=== PATIENT | female | born 2005 | race Caucasian/White ===

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

== ENCOUNTER → 2023-01-10 17:29 | Outpatient (BNVA) | payer BC, MEDICAID, SELFPAY | PROVIDERS: PCP Family Medicine; Visit Provider Nurse Practitioner Family | DX: N30.01 Acute cystitis with hematuria (principal) | CPT/HCPCS: 81000; 87077; 87086; 87184 ==

== ENCOUNTER → 2023-02-05 09:50 | Outpatient (BNVA) | payer BC, MEDICAID, SELFPAY | PROVIDERS: PCP Family Medicine; Visit Provider Nurse Practitioner Family | DX: M25.561 Pain in right knee (principal) | CPT/HCPCS: 73562 ==

== ENCOUNTER 2023-03-09 19:11 | Emergency (ER) | payer BC, MEDICAID, SELFPAY ==
[2023-03-09 19:29] VITALS: BMI 36.1
[2023-03-09 19:33] VITALS: BP 111/73; PULSE 91; RESP 16; TEMP 37; O2SAT 97
[2023-03-09 19:34] LABS: Basophils % 0.3 %; Eosinophils # 0.2 10^3/uL (0.0-0.8); Eosinophils % 2.8 %; Hematocrit 40.6 % (37.0-47.0); Hemoglobin 13.4 g/dL (11.5-15.3); Lymphocytes # 1.5 10^3/uL (1.5-6.5); Lymphocytes % 19.4 %; Mean Corpuscular Hemoglobin 26.3 pg (28.0-34.0); Mean Corpuscular Volume 79.6 fl (81-99); Mean Platelet Volume 10.8 fL (7.4-10.4); Monocytes # 0.4 10^3/uL (0.2-0.9); Monocytes % 4.7 %; Neutrophils # 5.78 10^3/uL (1.8-8.0); Neutrophils % 72.8 %; Nucleated Red Blood Cells % 0 %; Platelet Count 281 10^3/cmm (130-400); Red Cell Distribution Width 15.2 % (12.1-15.1); White Blood Count 7.9 10^3/uL (4.5-13.0)
[2023-03-09 19:53] LABS: HCG, Serum Qual Negative (Negative)
[2023-03-09 19:56] LABS: Alanine Aminotransferase 50 U/L (0-33); Albumin Level 4.7 g/dL (3.5-5.2); Alkaline Phosphatase 123 U/L (35-105); Anion Gap 16.6 (5-19); Aspartate Amino Transferase 22 U/L (0-32); Blood Urea Nitrogen 10 mg/dL (6-20); Calcium 9.5 mg/dL (8.5-10.5); Carbon Dioxide 21 mmol/L (22-29); Chloride 106 mmol/L (98-107); Glomerular Filtration Rate 127.5 mL/min (90-130); Glucose 95 mg/dL (65-115); Lipase 22 U/L (13-60); Osmolality Calculated 289 mOsm/kg (285-295); Potassium 3.6 mmol/L (3.5-5.1); Sodium 140 mmol/L (136-145); Total Bilirubin 0.4 mg/dL (0.15-1.2); Total Protein 7.7 g/dL (6.6-8.7)
--- NOTE | 2023-03-09 20:13 | CTR_ITS ---
PROCEDURE INFORMATION: Exam: CT Abdomen And Pelvis With Contrast Exam date and time: 03/09/2023 8:57 PM Age: 18 years old Clinical indication: Abdominal pain; Localized; Prior surgery; Surgery date: 6+ months; Surgery type: Csection; Patient HX: Upper abd pain radiating to mid back; Additional info: Epigastric pain radiating to back TECHNIQUE: Imaging protocol: Computed tomography of the abdomen and pelvis with contrast. Sagittal and coronal reformatted images were created and reviewed. Radiation optimization: All CT scans at this facility use at least one of these dose optimization techniques: automated exposure control; mA and/or kV adjustment per patient size (includes targeted exams where dose is matched to clinical indication); or iterative reconstruction. Contrast material: OMNI 350; Contrast volume: 100 ml; Contrast route: INTRAVENOUS (IV); REPORTING DATA: Count of CT and Cardiac NM exams in prior 12 months: This patient has received 0 known CTs and 0 known cardiac nuclear medicine studies in the 12 months prior to the current study. COMPARISON: CR XR lumbar spine 2-3V* [id number] 12/21/2022 1:23 PM RADIATION DOSE METRICS: Total DLP (mGy-cm): 752.33 FINDINGS: Lungs: Visualized lungs are clear. Pleural spaces: No pleural effusion. Heart: Visualized portions of the heart are unremarkable. Liver: The liver is unremarkable. Gallbladder and bile ducts: The gallbladder is unremarkable. No biliary ductal dilatation. Pancreas: The pancreas is unremarkable. No pancreatic ductal dilatation. Spleen: The spleen is unremarkable. Adrenal glands: The right and left adrenal glands are unremarkable. Kidneys and ureters: The right and left kidneys are unremarkable. The right and left ureters are unremarkable. Stomach and bowel: No obstruction. No mucosal thickening. Appendix: The appendix is visualized and is unremarkable. No findings to suggest acute appendicitis. Intraperitoneal space: No free intraperitoneal air. No ascites. No loculated fluid collections to suggest an abscess. Vasculature: No evidence for aortic aneurysm or aortic dissection. Hepatic veins, portal veins, splenic vein, and SMV are patent. Lymph nodes: No lymphadenopathy. Urinary bladder: The bladder is incompletely filled, which can limit evaluation. No focal abnormality in the bladder however. Reproductive: The uterus is unremarkable. The uterus is retroflexed. The right and left ovaries are unremarkable. Bones/joints: No acute fracture. Soft tissues: No acute abnormality in the extra-abdominal soft tissues. CT/CT abdomen pelvis w con* [id number] IMPRESSION: 1. No acute abnormality in the abdomen or pelvis. 2. Incidental/nonacute findings are listed in the report.
--- NOTE | 2023-03-09 20:15 | W.ED.ABDPA2 ---
HPI - Abdominal Pain General: Chief Complaint: Abdominal Pain Stated Complaint: ABD Pain Time Seen by Provider: 03/09/23 19:47 History of Present Illness: 18-year-old female comes in today for complaints of epigastric abdominal pain radiating to her back. Patient reports symptoms for the last week but worse today. Patient first related to the stress that she has been under. Patient does have a history of gastric reflux. Patient appears nontoxic. Patient appears in no pain at rest. Associated Symptoms: Reports nausea Related Data: Date of Last Menstrual Period: 02/18/23 Review of Systems General: Reports: 10 or more systems reviewed and unremarkable except in HPI and below GI: Reports: abdominal pain and nausea PFSH ED PFSH: Family History Father Diabetes Mother Diabetes Social History Smoking and tobacco status: current every day smoker (1/4 PPd Started smoking at age 15) Female Reproductive History: Date of last menstrual period: 02/18/23 Physical Exam Const: COMMON NORMALS: alert HENMT: COMMON NORMALS: normocephalic HEAD & SCALP: normocephalic THROAT: posterior oropharynx normal Neck/C-Spine: COMMON NORMALS: full ROM Resp: COMMON NORMALS: normal respiratory effort and clear to auscultation bilaterally AUSCULTATION: clear to auscultation bilaterally Cardio: COMMON NORMALS: regular rate and regular rhythm RATE: regular rate RHYTHM: regular rhythm GI: COMMON NORMALS: Soft to palpation PALPATION: Yes Soft to palpation, Yes Tenderness to palpation present (GI) (Epigastric) and No Guarding due to palpation present (GI) Back/Pelvis: COMMON NORMALS: thoracic and lumbar spine normal to inspection Extremity: COMMON NORMALS: normal to inspection Neuro: SENSORIUM/ORIENTATION: Yes alert Skin: COMMON NORMALS: turgor normal GENERAL SKIN EXAM: turgor normal Course Vital Signs: Vital signs: Vital Signs Temperature 98.6 F 03/09/23 19:33 Pulse Rate 91 03/09/23 19:33 Respiratory Rate 16 03/09/23 19:33 Blood Pressure 111/73 03/09/23 19:33 Pulse Oximetry 97 03/09/23 19:33 Oxygen Delivery Me thod Room Air 03/09/23 19:33 MDM - Abdominal Pain Medical Decision Making 18-year-old female comes in with epigastric pain and nausea. Patient appears nontoxic. Patient's abdomen soft with some epigastric tenderness. Bowel sounds are active. Vital signs are normal. Differential diagnosis includes but not limited to urinary tract infection, gastritis, cholecystitis, pancreatitis, malingering. Laboratory values were unremarkable except for some mild elevation in ALT's and alkaline phosphatase. Laboratory values were unremarkable except for some elevation in ALT, and alkaline phosphatase. Urinalysis was a dirty catch. CT of the abdomen pelvis showed no specific findings. I believe patient probably has a superficial gastritis we will treat her for 2 weeks with a PPI and recommend follow-up with primary care. Patient was stable and released to home. Lab Data 03/09/23 19:03/09/23: Labs/Radiology: Radiology Impressions Abdomen/Pelvis CT 03/09/23 20:13 IMPRESSION: 1. No acute abnormality in the abdomen or pelvis. 2. Incidental/nonacute findings are listed in the report. Laboratory Results WBC 7.9 10^3/uL (4.5-13.0) 03/09/23: RBC 5.10 10^6/uL (4.1-5.3) 03/09/23: Hgb 13.4 g/dL (11.5-15.3) 03/09/23: Hct 40.6 % (37.0-47.0) 03/09/23: MCV 79.6 fl (81-99) L 03/09/23: MCH 26.3 pg (28.0-34.0) L 03/09/23: MCHC 33.0 g/dL (30.0-36.0) 03/09/23: RDW 15.2 % (12.1-15.1) H 03/09/23: Plt Count 281 10^3/cmm (130-400) 03/09/23: MPV 10.8 fL (7.4-10.4) H 03/09/23: Neut % (Auto) 72.8 % 03/09/23: Lymph % (Auto) 19.4 % 03/09/23: [place] % (Auto) 4.7 % 08/11/23 19:28 Eos % (Auto) 2.8 % 03/09/23 19:28 Baso % (Auto) 0.3 % 03/09/23 19: Neut # (Auto) 5.78 10^3/uL (1.8-8.0) 03/09/23 19: Lymph # (Auto) 1.5 10^3/uL (1.5-6.5) 03/09/23 19: [place] # (Auto) 0.4 10^3/uL (0.2-0.9) 03/09/23 19: Eos # (Auto) 0.2 10^3/uL (0.0-0.8) 03/09/23 19: Baso # (Auto) 0.0 10^3/uL (0.0-0.1) 03/09/23 19: Nucleated RBC % (auto) 0 % 03/09/23 19: Nucleated RBCs # 0.0 /100WBC 03/09/23 19: Sodium 140 mmol/L (136-145) 03/09/23 19: Potassium 3.6 mmol/L (3.5-5.1) 03/09/23 19: Chloride 106 mmol/L (98-107) 03/09/23 19: Carbon Dioxide 21 mmol/L (22-29) L 03/09/23 19: Anion Gap 16.6 (5-19) 03/09/23 19: BUN 10 mg/dL (6-20) 03/09/23 19: Creatinine 0.6 mg/dL (0.5-0.9) 03/09/23 19: GFR Calculation 127.5 mL/min (90-130) 03/09/23 19: Glucose 95 mg/dL (65-115) 03/09/23 19: Calculated Osmolality 289 mOsm/kg (285-295) 03/09/23 19: Calcium 9.5 mg/dL (8.5-10.5) 03/09/23 19: Total Bilirubin 0.4 mg/dL (0.15-1.2) 03/09/23 19: AST 22 U/L (0-32) 03/09/23 19: ALT 50 U/L (0-33) H 08/11/23 19:28 Alkaline Phosphatase 123 U/L (35-105) H 03/09/23 19:28 Total Protein 7.7 g/dL (6.6-8.7) 03/09/23 19:28 Albumin 4.7 g/dL (3.5-5.2) 03/09/23 19:28 Globulin 3.0 g/dL (1.3-4.6) 03/09/23 19:28 Lipase 22 U/L (13-60) 03/09/23 19:28 HCG, Qual Negative (Negative) 03/09/23 19:28 Urine Color Yellow (Yellow) 03/09/23 20:34 Urine Appearance Hazy (CLEAR) A 03/09/23 20:34 Urine pH 6 (5-7) 03/09/23 20:34 Ur Specific [place] 1.020 (1.005-1.030) 03/09/23 20:34 Urine Protein Trace (Negative) 03/09/23 20:34 Urine Glucose (UA) Norm (Normal) 03/09/23 20:34 Urine Ketones 1+ (Negative) H 03/09/23 20:34 Urine Blood Neg (Negative) 03/09/23 20:34 Urine Nitrate Negative (Negative) 03/09/23 20:34 Urine Bilirubin 1+ (Negative) H 03/09/23 20:34 Urine Urobilinogen 8 mg/dL (Negative) H 03/09/23 20:34 Ur Leukocyte Esterase 1+ (Negative) H 03/09/23 20:34 Urine RBC 0-4 /hpf (0-2) H 03/09/23 20:34 Urine WBC 0-4 /hpf (0-5) H 03/09/23 20:34 Ur Squamous Epith Cells 15-25 /hpf (0-5) H 03/09/23 20:34 Amorphous Sediment Not Reportable 03/09/23 20:34 Urine Bacteria 1+ /hpf (NONE) H 03/09/23 20:34 Urine Mucus 1+ /hpf 03/09/23 20:34 Discharge Plan Discharge Patient Disposition: Home Clinical Impression: Gastritis Qualifiers: Gastritis type: unspecified gastritis Chronicity: acute Gastritis bleeding: without bleeding Qualified Code(s): K29.00 - Acute gastritis without bleeding Condition: Stable Prescriptions: New pantoprazole 40 mg tablet,delayed release (DR/EC) 40 mg PO DAILY Qty: 14 0RF No Action loratadine 10 mg tablet 10 mg PO DAILY 90 Days Qty: 90 1RF nystatin 100,000 unit/gram ointment 1 applic topical BID Qty: 30 2RF nystatin 100,000 unit/gram powder 1 applic topical DAILY Qty: 60 0RF ondansetron 4 mg tablet,disintegrating 4 mg PO DAILY PRN (Reason: nausea and vomiting) Qty: 30 0RF norgestimate-ethinyl estradiol [Sprintec (28)] 0.25-35 mg-mcg tablet 1 tab PO DAILY Qty: 84 3RF bupropion HCl [Wellbutrin XL] 150 mg tablet extended release 24 hr 150 mg PO QAM 30 Days Qty: 30 2RF fluticasone propionate [Flonase Allergy Relief] 50 mcg/actuation spray,suspension 1 spray intranasal BID 30 Days Qty: 16 11RF Rx Instructions: administer into each nostril fexofenadine [Yolanda Allergy] 180 mg tablet 180 mg PO Q24H 90 Days Qty: 90 1RF ibuprofen 600 mg tablet 600 mg PO Q8H PRN (Reason: pain) Qty: 30 0RF cyclobenzaprine 5 mg tablet 10 mg PO TID MDD 6 tabs PRN (Reason: muscle spasm) Qty: 30 1RF Rx Instructions: 1 or 2 tabs as needed Discharge Orders: Discharge ED (Routine); Ordered 03/09/23 Ordered By: Justino Chin Referrals: Freda Huerta MD [Primary Care Provider] - Discharge Diet: Usual diet Discharge Activity: Increase activity as tolerated Patient Instructions: Gastritis (ED), Diet for Stomach Ulcers and Gastritis (ED) Activity Restrictions/Additional Instructions: Take pantoprazole 1 capsule 30 minutes before the first meal of your day. Drink plenty of water. Healthy diet and activity. Follow-up with primary care in 3 to 5 days for recheck. Return to ED for new concerns. Coding Level of Care Code ED Emergency Room Physician Assistant for Malorie Loredo
[2023-03-09] MEDS: iohexol 350 mg/mL 500 mL Btl (per mL) IV (20:58)
[2023-03-09 21:11] LABS: Protein Urine Trace (Negative); Urine Appearance Hazy (CLEAR); Urine Color Yellow (Yellow); pH Urine 6 (5-7)
[2023-03-09 21:12] LABS: Add Urine Microscopic? YES; Bilirubin Urine 1+ (Negative); Blood Urine Neg (Negative); Glucose Urine UA Norm (Normal); Ketones Urine 1+ (Negative); Leukocyte Esterase Urine 1+ (Negative); Nitrate Urine Negative (Negative); RBC Urine 0-4 /hpf (0-2); Urobilinogen Urine 8 mg/dL (Negative); WBC Urine 0-4 /hpf (0-5)
[2023-03-09 21:13] LABS: Add Urine Culture? No; Bacteria Urine 1+ /hpf; Mucus Urine 1+ /hpf; Squamous Epithelial Cell Urine 15-25 /hpf (0-5)
[2023-03-09] MEDS: pantoprazole DR 40 mg Tablet PO (22:02)
[2023-03-09 23:20] VITALS: BP 119/84; PULSE 75; RESP 16; O2SAT 97
== END 2023-03-09 22:05 | disposition home or self-care (01) ==
PROVIDERS: Emergency Medicine; Emergency Provider Nurse Practitioner Family; PCP Family Medicine
DX: K29.00 Acute gastritis without bleeding (principal); F17.210 Nicotine dependence, cigarettes, uncomplicated
CPT/HCPCS: 36415; 74177; 80053; 81001; 83690; 84703; 85025; 99285; Q9967

== ENCOUNTER → 2023-04-03 10:51 | Outpatient (BNVA) | payer BC, MEDICAID, SELFPAY | PROVIDERS: PCP Family Medicine; Referring Provider Nurse Practitioner Family; Visit Provider Nurse Practitioner Family | DX: M25.561 Pain in right knee (principal) | CPT/HCPCS: 73562 ==

== ENCOUNTER 2023-04-09 06:00 | Outpatient (RCR) | payer BC, MEDICAID, SELFPAY | END 2023-04-28 23:59 | disposition home or self-care (01) | LOC: MPT 06:00 | PROVIDERS: Visit Provider Nurse Practitioner Family | DX: M25.561 Pain in right knee (principal) | CPT/HCPCS: 97110; 97161 ==

== ENCOUNTER 2023-04-29 06:00 | Outpatient (RCR) | payer BC, MEDICAID, SELFPAY | END 2023-05-29 23:59 | disposition home or self-care (01) | LOC: MPT 06:00 | PROVIDERS: PCP Family Medicine; Visit Provider Nurse Practitioner Family | DX: M25.561 Pain in right knee (principal) | CPT/HCPCS: 97110 ==

== ENCOUNTER → 2023-05-08 11:53 | Outpatient (BNVA) | payer BC, MEDICAID, SELFPAY | PROVIDERS: PCP Family Medicine; Visit Provider Nurse Practitioner Family | DX: R31.9 Hematuria, unspecified (principal); R81 Glycosuria; Z32.00 Encounter for pregnancy test, result unknown; N39.0 Urinary tract infection, site not specified | CPT/HCPCS: 80053; 81000; 81025; 83036; 84702; 85025; 87077; 87086; 87184 ==

== ENCOUNTER 2023-05-30 06:00 | Outpatient (RCR) | payer BC, MEDICAID, SELFPAY | END 2023-06-28 23:59 | disposition home or self-care (01) | LOC: MPT 06:00 | PROVIDERS: PCP Family Medicine; Visit Provider Nurse Practitioner Family | DX: M25.561 Pain in right knee (principal) | CPT/HCPCS: 97110 ==

== ENCOUNTER → 2023-07-02 15:27 | Outpatient (BNVA) | payer BC, MEDICAID, SELFPAY | PROVIDERS: PCP Family Medicine; Visit Provider Family Medicine | DX: J30.2 Other seasonal allergic rhinitis (principal); J32.9 Chronic sinusitis, unspecified; F98.8 Other specified behavioral and emotional disorders with onset usually occurring in childhood and adolescence; Z30.9 Encounter for contraceptive management, unspecified; J32.0 Chronic maxillary sinusitis; Z30.42 Encounter for surveillance of injectable contraceptive | CPT/HCPCS: 81025 ==

== ENCOUNTER → 2023-08-14 15:48 | Outpatient (BNVA) | payer MEDICAID, SELFPAY | PROVIDERS: PCP Family Medicine; Visit Provider Nurse Practitioner Family | DX: R39.9 Unspecified symptoms and signs involving the genitourinary system (principal); R31.9 Hematuria, unspecified; N39.0 Urinary tract infection, site not specified; N30.01 Acute cystitis with hematuria | CPT/HCPCS: 81000; 87086 ==

== ENCOUNTER → 2023-10-02 10:20 | Outpatient (BNVA) | payer BC, MEDICAID, SELFPAY | PROVIDERS: PCP Family Medicine; Visit Provider Emergency Medicine | DX: Z30.42 Encounter for surveillance of injectable contraceptive | CPT/HCPCS: 81025 ==

== ENCOUNTER → 2024-01-01 16:00 | Outpatient (BNVA) | payer MEDICAID, SELFPAY | PROVIDERS: PCP Family Medicine; Visit Provider Nurse Practitioner Family | DX: J02.9 Acute pharyngitis, unspecified (principal); J06.9 Acute upper respiratory infection, unspecified | CPT/HCPCS: 87071; 87880 ==

== ENCOUNTER → 2024-03-19 14:19 | Outpatient (BNVA) | payer BC, MEDICAID, SELFPAY | PROVIDERS: PCP Family Medicine; Visit Provider Family Medicine | DX: Z30.42 Encounter for surveillance of injectable contraceptive (principal) | CPT/HCPCS: 81025 ==

== ENCOUNTER → 2024-04-09 09:52 | Outpatient (BNVA) | payer BC, MEDICAID, SELFPAY | PROVIDERS: PCP Family Medicine; Visit Provider Nurse Practitioner | DX: M25.531 Pain in right wrist (principal); W01.198A Fall on same level from slipping, tripping and stumbling with subsequent striking against other object, initial encounter | CPT/HCPCS: 73110 ==

== ENCOUNTER → 2024-05-08 09:27 | Outpatient (BNVA) | payer BC, MEDICAID, SELFPAY | PROVIDERS: PCP Family Medicine; Visit Provider Nurse Practitioner | DX: N91.2 Amenorrhea, unspecified (principal); R30.0 Dysuria | CPT/HCPCS: 81000; 81025 ==

== ENCOUNTER 2024-05-24 21:17 | Emergency (ER) | payer BC, MEDICAID, SELFPAY ==
[2024-05-24 21:27] VITALS: BP 117/79; PULSE 78; RESP 16; TEMP 36.8; O2SAT 100; BMI 32.5
[2024-05-24 23:17] LABS: Bilirubin Urine Negative (Negative); Blood Urine Negative (Negative); Glucose Urine UA Negative (Normal); Ketones Urine Negative (Negative); Leukocyte Esterase Urine Negative (Negative); Nitrate Urine Negative (Negative); Protein Urine Negative (Negative); Specific Gravity, Urine 1.028 (1.005-1.030); Urine Appearance Clear (CLEAR); Urine Color Yellow (Yellow); pH Urine 6.5 (5-7)
--- NOTE | 2024-05-24 23:19 | CTR_ITS ---
PROCEDURE INFORMATION: Exam: CT Abdomen And Pelvis With Contrast Exam date and time: 05/24/2024 11:32 PM Age: 19 years old Clinical indication: Abdominal pain; Localized; Right lower quadrant (rlq); Prior surgery; Surgery date: 6+ months; Surgery type: Csection; Patient HX: Rlq pain TECHNIQUE: Imaging protocol: Computed tomography of the abdomen and pelvis with contrast. Radiation optimization: All CT scans at this facility use at least one of these dose optimization techniques: automated exposure control; mA and/or kV adjustment per patient size (includes targeted exams where dose is matched to clinical indication); or iterative reconstruction. Contrast material: OMNI; Contrast volume: 100 ml; Contrast route: INTRAVENOUS (IV); COMPARISON: CT abdomen pelvis w con* [id number] 06/06/2023 20:57 RADIATION DOSE METRICS: Total DLP (mGy-cm): 620.63 FINDINGS: Lungs: No consolidation in the visualized lung bases. Liver: No hepatomegaly. There are no enhancing liver masses. Gallbladder and biliary ducts: No calcified stones. No ductal dilation. Pancreas: Normal in size and homogeneous enhancement. No ductal dilation. Spleen: Normal. No splenomegaly. Adrenal glands: Normal. No mass. Kidneys and ureters: There is no hydronephrosis. No renal or obstructing ureteral calculi. Stomach and bowel: Wall thickening of multiple bowel loops consistent with infectious, inflammatory or ischemic enteritis (axial series 3, image 37; coronal series 5, images 30-40). The terminal ileum is thickened (coronal series 5, image 31; axial series 3, image 50). Appendix: A normal appendix is identified. Intraperitoneal space: No free air. No significant fluid collection. Vasculature: There is no abdominal aortic aneurysm or dissection. The celiac trunk, SMA and JOHN are widely patent. Lymph nodes: There are borderline prominent mesenteric lymph nodes, likely reactive. Urinary bladder: The bladder shows a normal contour and is free of calcific opacities. Reproductive: Unremarkable as visualized. Bones/joints: No acute fracture. Soft tissues: Normal. CT/CT abdomen pelvis w con* [id number] IMPRESSION: 1. A normal appendix is identified. 2. Wall thickening of multiple bowel loops consistent with infectious, inflammatory or ischemic enteritis. The terminal ileum is thickened.
[2024-05-24 23:28] LABS: Add Urine Microscopic? YES; Bacteria Urine TRACE /hpf; Mucus Urine 2+ /hpf; RBC Urine 0-4 /hpf (0-2); WBC Urine 0-4 /hpf (0-5)
[2024-05-24 23:29] LABS: Add Urine Culture? No
[2024-05-24 23:29] LABS: HCG, Serum Qual Negative (Negative)
[2024-05-24 23:32] LABS: Basophils % 0.4 %; Eosinophils # 0.2 10^3/uL (0.0-0.8); Hematocrit 40.2 % (36-47); Lymphocytes # 1.9 10^3/uL (0.8-4.8); Lymphocytes % 26.6 %; Mean Corpuscular HGB Conc 32.6 g/dL (30-55); Mean Corpuscular Volume 82.7 fl (85-98); Mean Platelet Volume 10.8 fL (7.4-10.4); Monocytes # 0.5 10^3/uL (0.2-0.9); Monocytes % 6.9 %; Neutrophils # 4.57 10^3/uL (1.8-7.7); Neutrophils % 62.8 %; Nucleated Red Blood Cells % 0 %; Platelet Count 263 10^3/cmm (157-399); Red Blood Count 4.86 10^6/uL (3.85-5.65); Red Cell Distribution Width 13.1 % (12.1-15.1); White Blood Count 7.28 10^3/uL (3.29-11.43)
[2024-05-24] MEDS: ondansetron 2 mg/ML SDV 2 mL 4 MG IVP (23:33)
[2024-05-24] MEDS: morphine 4 mg/mL SDV 1 mL IVP (23:33)
[2024-05-24 23:35] LABS: Alanine Aminotransferase 14 U/L (0-33); Albumin Level 4.5 g/dL (3.5-5.2); Alkaline Phosphatase 80 U/L (35-105); Anion Gap 12.9 (5-19); Aspartate Amino Transferase 14 U/L (0-32); Blood Urea Nitrogen 10 mg/dL (6-20); Calcium 8.8 mg/dL (8.5-10.5); Carbon Dioxide 23 mmol/L (22-29); Chloride 106 mmol/L (98-107); Creatinine Clr Calc Pharmacy 168.2664; Globulin 2.7 g/dL (1.3-4.6); Glomerular Filtration Rate 155.7 mL/min (90-130); Glucose 100 mg/dL (65-115); Lipase 34 U/L (13-60); Osmolality Calculated 285 mOsm/kg (285-295); Potassium 3.9 mmol/L (3.5-5.1); Sodium 138 mmol/L (136-145); Total Bilirubin 0.2 mg/dL (0.15-1.2); Total Protein 7.2 g/dL (6.6-8.7)
[2024-05-24] MEDS: iohexol 350 mg/mL 500 mL Btl (per mL) IV (23:36)
[2024-05-25] MEDS: metroNIDAZOLE 500 MG Tablet PO (01:37)
[2024-05-25] MEDS: ketorolac 30 mg/mL INJ IVP (01:37)
[2024-05-25] MEDS: ciprofloxacin 500 mg Tablet PO (01:40)
[2024-05-25 01:43] VITALS: BP 137/64; PULSE 67; O2SAT 97
--- NOTE | 2024-05-25 03:40 | ED_ITS ---
HPI - Abdominal Pain 2 General: Chief Complaint: Abdominal Pain Stated Complaint: abd pain Time Seen by Provider: 05/24/24 22:56 History of Present Illness: 19-year-old female with right lower quad rant pain, seeming to radiate into her left upper quadrant. She has had 1 in the past. She does not believe she is today. No fever. She is nauseated but has not vomited. She noticed some bright red blood in the stool, small amount earlier in the evening. Related Data Previous Rx's Medication Instructions Recorded nystatin 100,000 unit/gram topical 1 applic topical BID #30 grams 08/30/22 ointment albuterol sulfate 90 mcg/actuation 2 puff inhalation Q6H #8.5 grams 06/04/23 aerosol inhaler fluticasone propionate 50 1 spray intranasal BID 30 days #16 07/02/23 mcg/actuation nasal grams spray,suspension (Flonase Allergy Relief) cyclobenzaprine 5 mg tablet 10 mg (2 x 5 mg) PO TID PRN muscle 12/18/23 spasm #90 tabs nystatin 100,000 unit/gram topical 1 applic topical DAILY #60 grams 03/08/24 powder medroxyprogesterone 150 mg/mL 150 mg IM ONCE 90 days #1 mL 03/18/24 intramuscular suspension (Depo-Provera) atomoxetine 40 mg capsule 40 mg PO QAM 30 days #30 caps 03/19/24 (Strattera) fluoxetine 10 mg capsule 10 mg PO DAILY 30 days #30 caps 03/19/24 hydroxyzine HCl 10 mg tablet 10 mg PO .at bedtime PRN insomnia 03/19/24 30 days #30 tabs azelastine 205.5 mcg (0.15 %) 1 spray intranasal BID #30 mL 04/17/24 nasal spray (Astepro Allergy) nitrofurantoin 100 mg PO Q12H 7 days #14 caps 05/08/24 monohydrate/macrocrystals 100 mg capsule (Macrobid) ciprofloxacin HCl 500 mg tablet 500 mg PO BID #14 tabs 05/25/24 ketorolac 10 mg tablet 10 mg PO TID PRN pain #10 tabs 05/25/24 metronidazole 500 mg tablet 500 mg PO Q8H 7 days #21 tabs 05/25/24 Allergies Allergy/AdvReac Type Severity Reaction Status Date / Time misha Allergy SNEEZE Verified 05/24/24 21:27 Milk Containing Products Allergy Intermediate ADR-Nausea Uncoded 05/24/24 21:27 (Dairy) PFSH ED 2 PFSH: Family History Father Diabetes Mother Diabetes Social History Smoking and tobacco/nicotine status: current every day tobacco/nicotine user Female Reproductive History: Spontaneous abortions: No Physical Exam 2 Const: COMMON NORMALS: no acute distress GENERAL APPEARANCE: cooperative; not ill appearing and not frail appearing HENMT: COMMON NORMALS: normocephalic, atraumatic and Normal external nose present HEAD & SCALP: normocephalic and atraumatic FACE & SINUS: normal facial exam and face symmetric NOSE: Normal external nose present Eye: COMMON NORMALS: Equal, round and reactive pupils present and EOMs intact bilaterally PUPIL: Yes Equal, round and reactive pupils present Neck/C-Spine: GENERAL: Yes trachea midline Chest: CHEST: Yes Symmetrical chest wall rise Resp: COMMON NORMALS: normal respiratory effort, No retractions, No use of accessory muscles and clear to auscultation bilaterally AUSCULTATION: clear to auscultation bilaterally Cardio: COMMON NORMALS: regular rate and regular rhythm RATE: regular rate RHYTHM: regular rhythm GI: COMMON NORMALS: Normal to inspection, nondistended, normoactive bowel sounds present and Soft to palpation PALPATION: Yes Soft to palpation and Yes Tenderness to palpation present (GI) Details: RLQ Extremity: COMMON NORMALS: no pedal edema Neuro: HERNANDEZ COMA SCALE: document GCS findings Hernandez coma scale eye opening: Spontaneous [place] coma scale verbal response: Orientated Hernandez coma scale motor response: Obey commands [place] coma scale total score: 15 S ENSORY EXAM: Yes extremities (intact) Psych: COMMON NORMALS: speech normal SPEECH: Yes normal speech Skin: COMMON NORMALS: no rashes or lesions noted GENERAL SKIN EXAM: no rashes or lesions noted Course 2 Vital Signs: Vital signs: Vital Signs Temperature 98.2 F 05/24/24 21:27 Pulse Rate 67 05/25/24 01:43 Respiratory Rate 16 05/24/24 21:27 Blood Pressure 137/64 05/25/24 01:43 Pulse Oximetry 97 05/25/24 01:43 Oxygen Delivery Me thod Room Air 05/24/24 21:27 MDM - Abdominal Pain Medical Decision Making Tenderness in the right lower quadrant. No fever. White blood cell count is normal. CRP is 3. CT shows wall thickening of multiple bowel loops consistent with infectious inflammatory enteritis. She was placed on antibiotics. She will be allowed discharge. Lab Data 05/24/24 23:10 05/24/24 23:10 Labs/Radiology: Radiology Impressions Abdomen/Pelvis CT 05/24/24 23:19 IMPRESSION: 1. A normal appendix is identified. 2. Wall thickening of multiple bowel loops consistent with infectious, inflammatory or ischemic enteritis. The terminal ileum is thickened. Laboratory Results WBC 7.28 10^3/uL (3.29-11.43) 05/24/24 23:10 RBC 4.86 10^6/uL (3.85-5.65) 05/24/24 23:10 Hgb 13.10 g/dL (11.27-16.99) 05/24/24 23:10 Hct 40.2 % (36-47) 05/24/24 23:10 MCV 82.7 fl (85-98) L 05/24/24 23:10 MCH 27.0 pg (27-33) 05/24/24 23:10 MCHC 32.6 g/dL (30-55) 05/24/24 23:10 RDW 13.1 % (12.1-15.1) 05/24/24 23:10 Plt Count 263 10^3/cmm (157-399) 05/24/24 23:10 MPV 10.8 fL (7.4-10.4) H 05/24/24 23:10 Neut % (Auto) 62.8 % 05/24/24 23:10 Lymph % (Auto) 26.6 % 05/24/24 23:10 [place] % (Auto) 6.9 % 05/24/24 23:10 Eos % (Auto) 3.0 % 05/24/24 23:10 Baso % (Auto) 0.4 % 05/24/24 23:10 Neut # (Auto) 4.57 10^3/uL (1.8-7.7) 05/24/24 23:10 Lymph # (Auto) 1.9 10^3/uL (0.8-4.8) 05/24/24 23:10 [place] # (Auto) 0.5 10^3/uL (0.2-0.9) 05/24/24 23:10 Eos # (Auto) 0.2 10^3/uL (0.0-0.8) 05/24/24 23:10 Baso # (Auto) 0.0 10^3/uL (0.0-0.1) 05/24/24 23:10 Nucleated RBC % (auto) 0 % 05/24/24 23:10 Nucleated RBCs # 0.0 /100WBC 05/24/24 23:10 Sodium 138 mmol/L (136-145) 05/24/24 23:10 Potassium 3.9 mmol/L (3.5-5.1) 05/24/24 23:10 Chloride 106 mmol/L (98-107) 05/24/24 23:10 Carbon Dioxide 23 mmol/L (22-29) 05/24/24 23:10 Anion Gap 12.9 (5-19) 05/24/24 23:10 BUN 10 mg/dL (6-20) 05/24/24 23:10 Creatinine 0.5 mg/dL (0.5-0.9) 05/24/24 23:10 GFR Calculation 155.7 mL/min (90-130) H 05/24/24 23:10 Glucose 100 mg/dL (65-115) 05/24/24 23:10 Calculated Osmolality 285 mOsm/kg (285-295) 05/24/24 23:10 Calcium 8.8 mg/dL (8.5-10.5) 05/24/24 23:10 Total Bilirubin 0.2 mg/dL (0.15-1.2) 05/24/24 23:10 AST 14 U/L (0-32) 05/24/24 23:10 ALT 14 U/L (0-33) 05/24/24 23:10 Alkaline Phosphatase 80 U/L (35-105) 05/24/24 23:10 C-Reactive Protein 3.0 mg/L (0.0-4.9) 05/24/24 23:10 Total Protein 7.2 g/dL (6.6-8.7) 05/24/24 23:10 Albumin 4.5 g/dL (3.5-5.2) 05/24/24 23:10 Globulin 2.7 g/dL (1.3-4.6) 05/24/24 23:10 Lipase 34 U/L (13-60) 05/24/24 23:10 HCG, Qual Negative (Negative) 05/24/24 23:10 Urine Color Yellow (Yellow) 05/24/24 23:05 Urine Appearance Clear (CLEAR) 05/24/24 23:05 Urine pH 6.5 (5-7) 05/24/24 23:05 Ur Specific [place] 1.028 (1.005-1.030) 05/24/24 23:05 Urine Protein Negative (Negative) 05/24/24 23:05 Urine Glucose (UA) Negative (Normal) 05/24/24 23:05 Urine Ketones Negative (Negative) 05/24/24 23:05 Urine Blood Negative (Negative) 05/24/24 23:05 Urine Nitrate Negative (Negative) 05/24/24 23:05 Urine Bilirubin Negative (Negative) 05/24/24 23:05 Urine Urobilinogen 1.0 mg/dL (Negative) 05/24/24 23:05 Ur Leukocyte Esterase Negative (Negative) 05/24/24 23:05 Urine RBC 0-4 /hpf (0-2) H 05/24/24 23:05 Urine WBC 0-4 /hpf (0-5) H 05/24/24 23:05 Ur Squamous Epith Cells 10-15 /hpf (0-5) H 05/24/24 23:05 Amorphous Sediment Not Reportable 05/24/24 23:05 Urine Bacteria Trace /hpf (NONE) 05/24/24 23:05 Urine Mucus 2+ /hpf 05/24/24 23:05 All radiology interpretation(s) finalized by discharge Discharge Plan Discharge Patient Disposition: Home Clinical Impression: Enteritis Condition: Stable Prescriptions: New ketorolac 10 mg tablet 10 mg PO TID PRN (Reason: pain) Qty: 10 0RF ciprofloxacin HCl 500 mg tablet 500 mg PO BID Qty: 14 0RF metronidazole 500 mg tablet 500 mg PO Q8H 7 Days Qty: 21 0RF No Action nystatin 100,000 unit/gram ointment 1 applic topical BID Qty: 30 2RF fluticasone propionate [Flonase Allergy Relief] 50 mcg/actuation spray,suspension 1 spray intranasal BID 30 Days Qty: 16 11RF Rx Instructions: administer into each nostril albuterol sulfate 90 mcg/actuation HFA aerosol inhaler 2 puff inhalation Q6H Qty: 8.5 0RF Rx Instructions: 2 puffs inhaled every 6 hours as needed cyclobenzaprine 5 mg tablet 10 mg PO TID MDD 6 tabs PRN (Reason: muscle spasm) Qty: 90 2RF Rx Instructions: 1 or 2 tabs as needed hydroxyzine HCl 10 mg tablet 10 mg PO .at bedtime PRN (Reason: insomnia) 30 Days Qty: 30 3RF fluoxetine 10 mg capsule 10 mg PO DAILY 30 Days Qty: 30 3RF atomoxetine [Strattera] 40 mg capsule 40 mg PO QAM 30 Days Qty: 30 2RF azelastine [Astepro Allergy] 205.5 mcg (0.15 %) spray,non-aerosol 1 spray intranasal BID Qty: 30 0RF Rx Instructions: administer into each nostril nitrofurantoin monohyd/m-cryst [Macrobid] 100 mg capsule 100 mg PO Q12H 7 Days Qty: 14 0RF Rx Instructions: must administer with a meal/food nystatin 100,000 unit/gram powder 1 applic topical DAILY Qty: 60 0RF medroxyprogesterone [Depo-Provera] 150 mg/mL suspension 150 mg IM ONCE 90 Days Qty: 1 1RF Discharge Orders: Discharge ED (Routine); Ordered 05/25/24 Ordered By: Manuel Cardenas Referrals: Freda Huerta MD [Primary Care Provider] - 1-3 days Patient Instructions: Enteritis (ED), Opioid Safety, Pain Management Activity Restrictions/Additional Instructions: Antibiotics as directed. Drink plenty of clear fluids. Return for vomiting liquids or medications, worsening pain despite treatment, worsening blood in the stool, fever despite 2-3 doses of antibiotics, other concerning symptoms. Call your doctor on Sunday to be seen this week. Coding Level of Care Code ED Consolidator for Malorie Loredo
== END 2024-05-25 01:44 | disposition home or self-care (01) ==
PROVIDERS: Emergency Provider Emergency Medicine; PCP Family Medicine
DX: K52.9 Noninfective gastroenteritis and colitis, unspecified (principal)
CPT/HCPCS: 74177; 80053; 81001; 83690; 84703; 85025; 86140; 96374; 96375; 99285; J1885; J2270; J2405

== ENCOUNTER → 2024-06-13 12:18 | Outpatient (BNVA) | payer BC, MEDICAID, SELFPAY | PROVIDERS: PCP Family Medicine; Visit Provider Nurse Practitioner Family | DX: Z30.42 Encounter for surveillance of injectable contraceptive (principal) | CPT/HCPCS: 81025 ==

== ENCOUNTER → 2024-06-19 17:16 | Outpatient (BNVA) | payer BC, MEDICAID, SELFPAY | PROVIDERS: PCP Family Medicine; Visit Provider Nurse Practitioner Family | DX: O21.0 Mild hyperemesis gravidarum (principal) | CPT/HCPCS: 81025 ==

== ENCOUNTER → 2024-09-01 11:00 | Outpatient (BNVA) | payer BC, MEDICAID, SELFPAY | PROVIDERS: PCP Family Medicine; Visit Provider Family Medicine | DX: Z30.42 Encounter for surveillance of injectable contraceptive (principal) | CPT/HCPCS: 81025 ==

== ENCOUNTER 2024-10-14 07:18 | Day surgery (SDC) | payer BC, MEDICAID, SELFPAY ==
[2024-10-14] VITALS (7 sets, daily range): BP systolic 75–132; BP diastolic 48–79; PULSE 48–95; RESP 16–18; TEMP 36.2–36.6; O2SAT 94–100; BMI 31.4
[2024-10-14] MEDS: sodium chloride 0.9% 500 ML 15 ML IV (07:51)
[2024-10-14 07:59] LABS: OR HCG Qualitative Urine Negative (Negative)
--- NOTE | 2024-10-14 08:12 | P.ANESASSM_ITS ---
Pre-Anesthetic Assessment Height/Weight: Height 1.55 m Weight 75.296 kg Temp Pulse Resp BP Pulse Ox O2 Del Method 97.9 F 72 16 132/79 99 Room Air 10/14/24 07:42 10/14/24 07:42 10/14/24 07:42 10/14/24 07:42 10/14/24 07:42 10/14/24 07:42 Preop Diagnosis: GI issues Operation Date: 10/14/24 08:30 Proposed Procedures p EGD [id number] G0105 K52.9 K21.9(Not Applicable) - Raheem Caldwell MD s Colonoscopy(Not Applicable) - Raheem Caldwell MD Familial anesthetic complications: none Was Beta Sherman taken within 24 hours: N/A Was Clonidine taken within 24 hours: N/A Last intake: Intake Last Liquid Date 10/13/24 Last Liquid Time 22:00 Last Solid Date 10/12/24 Last Solid Time 18:00 Social Tobacco and No alcohol Vapes Exam alert, oriented x 3, clear to auscultation bilaterally and regular rate & rhythm Airway Submandibular: within normal limits Cervical ROM: within normal limits Mallampati: Class II Dentition: full History/ROS No significant history except as noted and No significant complaints Pulmonary Asthma seasonal CV/HEM None reported None reported Hepatic None reported GI None reported Metabolic None reported Musc/skel None reported Neuropsych None reported Anesthetic Plan ASA status: 2 Anesthesia: MAC Risk of > 500 ml blood loss (7ml/kg in children): No Medications/Allergies Home Medications ?Medication ?Instructions ?Recorded ?Confirmed ?Last Taken ?Type albuterol sulfate 90 mcg/actuation 2 puff inhalation Q 6H #8.5 grams 06/04/23 10/14/24 Unknown Rx aerosol inhaler cyclobenzaprine 5 mg tablet 10 mg (2 x 5 mg) PO TID [place] N muscle 12/18/23 10/14/24 Unknown Rx spasm #90 tabs hydroxyzine HCl 10 mg tablet 10 mg PO .at bedtime PRN insomnia 06/19/24 10/14/24 Unknown Rx 30 days #30 tabs norelgestromin 150 mcg-e.estradiol 1 patch transdermal Q7D #3 ea 09/01/24 10/14/24 10/09/24 Rx 35 mcg/24 hr weekly transderm patch (Xulane) azelastine 205.5 mcg (0.15 %) 1 spray intranasal BID P RN 10/09/24 10/14/24 Unknown History nasal spray (Astepro Allergy) cingestion fluticasone propionate 50 1 spray intranasal BID PRN 0 10/09/24 10/14/24 Unknown History mcg/actuation nasal Congestion spray,suspension (Flonase Allergy Relief) Allergies Allergy/AdvReac Type Severity Reaction Status Date / Time Milk Containing Products Allergy Intermediate ADR-Nausea Verified 10/14/24 07:47 (Dairy) misha Allergy SNEEZE Verified 10/14/24 07:47 Current Medications Generic Name Dose Route Start Last Admin Trade Name Freq PRN Reason Stop Dose Admin Sodium Chloride 500 mls @ 15 mls/hr 10/14/24 07:38 10/14/24 07:51 Sodium Chloride 0.9% IV 10/15/24 07:37 15 mls/hr .Q24H PRN Administration COLONOSCOPY FLUIDS PFSH Anesthesia Family History Father Diabetes Mother Diabetes Social History Smoking and tobacco/nicotine status: current every day tobacco/nicotine user Female Reproductive History Date of last menstrual period: 09/23/24 Spontaneous abortions: No Data Anesthesia Cardiac Studies: No Data to Display
--- NOTE | 2024-10-14 08:37 | W.PM.OPSUD ---
Surgery/Procedure H&P Update DATE OF PROCEDURE: October 14, 2024 DATE H&P PERFORMED: 09/26/24 H&P UPDATE INFORMATION: I have reviewed H&P completed within last 30 days, I have examined patient prior to procedure and No changes to prior documentation PREOP DIAGNOSIS: GI issues PLANNED PROCEDURE: Operation Date: 10/14/24 08:30 Proposed Procedures p EGD [id number] G0105 K52.9 K21.9(Not Applicable) - Raheem Caldwell MD s Colonoscopy(Not Applicable) - Raheem Caldwell MD
--- NOTE | 2024-10-14 10:38 | SUR.EXTENDED ---
Administered NS 1000ml bolus in preop. Pt denies any symptoms of hypotension. Consulted Deni Lara CRNA prior to discharge. Per kirill Cheema suitable for discharge. See vitals and discharge criteria documentation.
--- NOTE | 2024-10-14 10:45 | ANE.PACU2 ---
Inpatient post-anesthesia follow up: Airway intact: Yes Vital signs: Temperature 97.2 F Pulse Rate 62 Respiratory Rate 16 Blood Pressure 80/56 Pulse Oximetry 100 Oxygen Delivery Me thod Room Air Oxygen Flow Rate Fraction of Inspir ed Oxygen Hydration adequate: Yes Nausea and vomiting: No Pain level: 1 Mental status: Baseline
== END 2024-10-14 10:44 | disposition home or self-care (01) ==
PROVIDERS: Anesthesiology; PCP Family Medicine; Visit Provider Student in an Organized Health Care Education/Training Program
PROC: 0DJ08ZZ Inspection of Upper Intestinal Tract, Via Natural or Artificial Opening Endoscopic (ICD-10-PCS; principal; 2024-10-14 08:30)
PROC: 0DJD8ZZ Inspection of Lower Intestinal Tract, Via Natural or Artificial Opening Endoscopic (ICD-10-PCS; CPT 45378; 2024-10-14 08:30)
DX: K50.00 Crohn's disease of small intestine without complications (principal); K29.80 Duodenitis without bleeding; K29.50 Unspecified chronic gastritis without bleeding; J45.909 Unspecified asthma, uncomplicated; F17.290 Nicotine dependence, other tobacco product, uncomplicated; K63.5 Polyp of colon; Z79.899 Other long term (current) drug therapy
CPT/HCPCS: 43239; 45380; 45385; 81025; 88305; J2704; J3490; J7040

== ENCOUNTER → 2024-11-05 11:05 | Outpatient (BNVA) | payer BC, MEDICAID, SELFPAY | PROVIDERS: PCP Family Medicine; Visit Provider Nurse Practitioner | DX: J02.9 Acute pharyngitis, unspecified (principal) | CPT/HCPCS: 87880 ==

== ENCOUNTER → 2024-11-20 15:51 | Outpatient (BNVA) | payer BC, MEDICAID, SELFPAY | PROVIDERS: PCP Family Medicine; Visit Provider Nurse Practitioner | DX: R11.0 Nausea (principal) | CPT/HCPCS: 81025 ==

== ENCOUNTER → 2025-01-09 16:56 | Outpatient (BNVA) | payer BC, MEDICAID, SELFPAY | PROVIDERS: PCP Family Medicine; Visit Provider Family Medicine | DX: N39.0 Urinary tract infection, site not specified (principal) | CPT/HCPCS: 81000 ==

== ENCOUNTER → 2025-03-23 10:47 | Outpatient (BNVA) | payer BC, MEDICAID, SELFPAY | PROVIDERS: PCP Family Medicine; Visit Provider Family Medicine | DX: N91.2 Amenorrhea, unspecified (principal); R53.83 Other fatigue; Z30.09 Encounter for other general counseling and advice on contraception; R81 Glycosuria; G47.00 Insomnia, unspecified | CPT/HCPCS: 80053; 81025; 83036; 83540; 84402; 84403; 84443; 85025 ==

== ENCOUNTER 2025-04-13 10:04 | Outpatient (CLI) | payer BC, MEDICAID, SELFPAY ==
--- NOTE | 2025-04-13 10:15 | US_ITS ---
WS: [id number] US pelvic complete* [id number] HISTORY: N91.2 - Amenorrhea, unspecified COMPARISON: None available. Only transabdominal imaging is performed through a nondistended bladder. Uterus: 7.9 cm x 4.0 cm x 3.1 cm. Normal size anteverted uterus. No fibroid or mass. Endometrium: 0.4 cm. As visualized normal. Right ovary: 2.6 cm x 2.5 cm x 2.8 cm. Normal size and vascularity, no cystic or solid masses. Left ovary: 3.7 cm x 1.9 cm x 3.4 cm. Normal size and vascularity, no cystic or solid masses. No free fluid in the cul-de-sac. US/US pelvic complete* [id number] IMPRESSION: 1. Quality of this examination is suboptimal due to only transabdominal imagin g performed through a nondistended bladder. Patient has refused transvaginal im aging. 2. No abnormality identified. 3. Recommend transvaginal pelvic ultrasound imaging.
== END 2025-04-13 10:05 | disposition home or self-care (01) ==
LOC: RAD 10:07
PROVIDERS: PCP Family Medicine; Visit Provider Family Medicine
DX: N91.2 Amenorrhea, unspecified (principal); R53.83 Other fatigue
CPT/HCPCS: 76856

== ENCOUNTER → 2025-04-27 15:09 | Outpatient (BNVA) | payer BC, MEDICAID, SELFPAY | PROVIDERS: PCP Family Medicine; Visit Provider Obstetrics & Gynecology | DX: N91.2 Amenorrhea, unspecified (principal) | CPT/HCPCS: 81025; 87624 ==